=== PATIENT | female | born 1985 | race African-American/Black ===

== ENCOUNTER 2017-12-08 17:19 | Emergency (ER) | payer SELFPAY ==
[~2017-12-08] VITALS: Ht 167.6 cm; Wt 68.2 kg
[~2017-12-08 17:19] MED LIST: AMOXICILLIN 50500 MG PO; MACROBID100 M1 PO; NKDA; NO HOME MEDICATIONS; PENICILLIN V500 MG PO; PRENATAL VITAMI1 TA5 PO; PRENATAL1 TA1 PO
[2017-12-08 17:21] VITALS: BP 134/92; TEMP 98.6
[2017-12-08 17:53] VITALS: PULSE 59
== END 2017-12-08 18:04 | disposition home or self-care (01) ==
LOC: COL.ER 17:19
DX: R49.0 Dysphonia (principal); F17.210 Nicotine dependence, cigarettes, uncomplicated